=== PATIENT | female | born 1995 | race Caucasian/White ===

== ENCOUNTER 2016-08-16 23:08 | Emergency (ER) | payer MEDICAID ==
[2016-08-16 23:14] VITALS: BMI 35.9
--- NOTE | 2016-08-16 23:35 | EDPRACDOC ---
- General Information Chief Complaint: Wound Stated Complaint: ABSCESS Time Seen by Provider: 08/16/16 23:33 Information Source: Patient Mode of Arrival:: Car Home Medications: Home Medications Cyclobenzaprine HCl [Flexeril] 10 mg PO Q8H #14 tab 10/24/14 Ketorolac Tromethamine [Toradol] 10 mg PO Q6H PRN #20 tab 10/24/14 Amoxicillin [Amoxil] 500 mg PO BID #14 cap 08/16/16 Allergies/Adverse Reactions: Allergies Allergy/AdvReac Type Severity Reaction Status Date / Time Penicillins Allergy Hives* Verified 08/16/16 23:14 - History of Present Illness Onset: 2 DAYS Location: Reports: Extremity Last Tetanus: Yes Relevent History Of: Reports: None Prior Abscess: Reports: If Different Location Pain: Reports: Mild Quality: Reports: Red Associated Signs & Symptoms: Reports: None ED Past Medical History - History Reviewed Yes Nurses notes reviewed and agree except as marked - Patient Medical History Psychological History: Denies: Depression Surgical History: Reports: Tonsillectomy/Adnoidectomy - Social Medical History Smoking Status: Heavy tobacco smoker (5 or more cigarettes/day or daily pipe/ cigar) EDM Review of Systems - Review of Systems ROS Negative Except as Marked: Yes All systems reviewed and were negative except as marked - Physical Exam Constitutional: Alert (Awake), No apparent distress Oriented to: Time, Person, Place Last recorded Vital Signs: Last Vital Signs Temp 98.8 F 08/16/16 23:10 Pulse 118 08/16/16 23:10 Resp 20 08/16/16 23:10 BP 167/97 08/16/16 23:10 Pulse Ox 98 08/16/16 23:10 Oxygen Pulse Oxygen Saturation 98 O2 Device Room Air Oxygen Flow Rate Fraction of Inspired Oxygen ( FIO2) - HEENT Head: Normal ( normocephalic) Eye Exam: Normal (PERRL, EOMI, Sclera white) Oropharynx: Normal (Pharynx:Moist without exudate,Gums-no swelling) ENT EAC: Normal TMJ: Normal Nose: No Symptoms Reported (septum midline) - Musculoskeletal Back: Normal (Non-Tender) Extremities: Normal (Normal tone, Pulses 2+ No cyanosis or edema, FROM) - Integumentary Skin: Dry, Other (CELLULITIS RIGHT PROXIMAL THIGH MEDIALLY) Lymphatics: Normal (no adenopathy) - Neurologic Memory Impaired: Normal Motor Function: Normal (Normal tone, Pulses 2+ No cyanosis or edema, FROM) Cranial Nerve: Normal (CN II-X11 intact sensation, strength 5/5) Cerebellar: Normal Mood Description: Normal Perception: Normal Decision Time to Discharge: 23:34 - Departure Yes I personally saw and evaluated the patient. Disposition: Home Condition: Good Final Diagnosis: RIGHT THIGH CELLULITIS Instructions: Cellulitis (ED) Education/Counseling Given To: Patient, Family Member Education/Counseling Given Regarding: Diagnosis, Treatment, Prognosis Referrals: None,No Provider [Primary Care Provider] - One Week Luis F Villarreal MD [Staff Physician] - One Week Prescriptions: Amoxicillin [Amoxil] 500 mg PO BID #14 cap
[2016-08-16] MEDS ORDERED: AMOXICILLIN 500 MG CAP PO ONE (23:41)
[2016-08-17 00:39] VITALS: BP 158/80; PULSE 102; TEMP 98.9
== END 2016-08-17 00:25 | disposition home or self-care (01) ==
LOC: ED 23:08
DX: L03.115 Cellulitis of right lower limb (principal)
CPT/HCPCS: 99283; J3490